=== PATIENT | female | born 1940 | race Caucasian/White ===

== ENCOUNTER → 2016-09-08 15:50 | Outpatient (CLI) | payer MEDICARE, OTHER ==
[2014-10-26 00:53] VITALS: BMI 27.0
[~2016-09-08 15:50] MED LIST: AVAPRO150 MG PO; BUMEX 1 MG TAB1 MG PO; CALTRATE 600 M600 M1 PO; CARTIA XT240 MG PO; DIOVAN80 MG PO; HYDROCODONE-APA1 TAB PO; KLONOPIN1 MG PO; LEXAPRO20 MG PO; LIPITOR20 MG PO; MIRAPEX1 MG PO; PLAVIX75 MG PO; VITAMIN D31000 UNIT PO
== END | disposition home or self-care (01) ==
LOC: D.MRI 09-04 13:00
DX: M48.56XA Collapsed vertebra, not elsewhere classified, lumbar region, initial encounter for fracture (principal)

== ENCOUNTER 2016-09-18 07:56 | Outpatient (CLI) | payer MEDICARE, OTHER ==
[~2016-09-18] VITALS: Ht 154.9 cm; Wt 66.4 kg
--- NOTE | 2016-09-18 08:30 | NUR ---
IN AND OUT CATHETERIZATION COMPLETED, TOLERATED WELL. SENT URINE TO LAB FOR U/A AND CULTURE. HISTORY AND ASSESSMENT OBTAINED. FRIEND ACCOMPANIED PT.
[2016-09-18 08:47] VITALS: BP 126/71; Ht 154.9 cm; Wt 66.4 kg
[2016-09-18 10:26] LABS: APPEARANCE SLT CLOUDY (CLEAR); COLOR YELLOW (YELLOW)
[2016-09-18 10:27] LABS: BILIRUBIN NEGATIVE (NEGATIVE); GLUCOSE NEGATIVE (NEGATIVE); KETONE NEGATIVE (NEGATIVE); LEUKOCYTE ESTERASE 1+ (NEGATIVE); NITRITE NEGATIVE (NEGATIVE); PROTEIN NEGATIVE (NEGATIVE); UROBILINOGEN NORMAL (NORMAL)
[2016-09-18 10:29] LABS: WHITE CELLS - URINE 25-50 /hpf (0-5)
[2016-09-18 10:30] LABS: RED CELLS - URINE 0-5 /hpf (0-5)
[2016-09-18 10:31] LABS: BACTERIA MANY /hpf (NONE SEEN); EPITHELIAL CELLS 0-5 /hpf (0-5)
== END 2016-09-18 08:59 | disposition home or self-care (01) ==
LOC: D.OPS 07:56
PROVIDERS: Radiology Diagnostic Radiology
DX: M48.55XA Collapsed vertebra, not elsewhere classified, thoracolumbar region, initial encounter for fracture (principal)

== ENCOUNTER 2018-01-17 12:00 | Inpatient (IN) | payer MEDICARE, OTHER ==
[~2018-01-17] VITALS: Ht 154.9 cm; Wt 57.2 kg
--- NOTE | ~2018-01-17 | OP ---
PATIENT NAME: LANNY JULIEN MEDICAL RECORD: [id number] :36 LOCATION:D.[facility] [address] ADMISSION DATE:01/17/18 SURGEON: DANIEL CLIFTON MD DATE OF OPERATION: 01/18/2018 SURGEON: Daniel Clifton MD ANESTHESIA: TIVA by Yesica Pitts CRNA. DIAGNOSIS: Right hydroureteronephrosis. PROCEDURES: Cystoscopy, right retrograde pyelogram, right ureteral stent insertion 6-Salvadorean x 24 cm without string attached. FINDINGS: Single ureteral orifices bilaterally. No bladder tumors. On retrograde pyelogram, there is a medial deviation of the ureter just below the L5 vertebral body level and over the sacral body. There is a very tight stricture here. CLINICAL HISTORY: This is a 77-year-old female who came in with abdominal pain and nausea and vomiting. CT scan showed a possible ileus. She had a small bowel follow-through today and the dye does go through all the way down to the rectum, therefore she does not have a bowel obstruction. She has an NG tube in the meantime in case she had a bowel obstruction. The CT also shows acute right-sided hydronephrosis with no obvious cause. There is no stone visible in the kidney or the ureter. Her admitting urine culture grew E. coli, which is sensitive to ceftriaxone. She is currently on ceftriaxone IV. She comes now to have a right ureteral stent inserted to decompress the right kidney. We used an open-ended ureteral catheter and inserted contrast through the right ureteral orifice. The tight stricture actually prevented the contrast from migrating proximally. We had to push the catheter past the stricture zone in order to image the rest of the ureter proximal to the stricture zone. Here we found a quite significant hydroureteronephrosis. There are no filling defects that are seen. Through the lumen of the ureteral catheter, we inserted the Sensor wire up into the renal pelvis. The ureteral catheter was then removed. Over the guidewire, we inserted a 6-Salvadorean x 24 cm ureteral stent. Once the stent was in correct position, the wire was completely withdrawn. The distal end of the stent was pushed into the bladder using a pusher. The bladder was emptied through the cystoscope sheath and then the scope was removed. TRANSINT:[id number] Voice Confirmation ID: [id number] DOCUMENT ID: [id number] DANIEL CLIFTON MD at 0830 CC: [id number] DICTATION DATE: 01/18/18 1532 MANAGER CASINO: 01/18/[address] [facility] [address] [place] [address]
--- NOTE | ~2018-01-17 | MORECARE ---
CASE MANAGEMENT DISCHARGE SUMMARY PATIENT: LANNY JULIEN UNIT: [id number] ADM DATE: 01/17/18 AGE: 77 : 38 SEX: F ROOM/BED: D.2234 AUTHOR: GERARDO GALAN PHYSICIAN: REFERRING PHYSICIAN: SHERLYN DE LA CRUZ MD DATE OF SERVICE: 01/21/18 Discharge Plan Patient Name: LANNY JULIEN Facility: [facility]:[place] : 1940 Planned Disposition: Home Anticipated Discharge Date: Discharge Date: 01/20/2018 Expected LOS: 0 Initial Reviewer: [email or web address] Initial Review Date: 01/20/2018 Generated: 01/21/18 10:29 am Comments DCP- Discharge Planning Updated by [id number]: Neelima Tervino on 01/20/18 11:[address] Patient Name: LANNY JULIEN Admission Status: ER Accout number: [id number] Admission Date: 01-17-2018 : 1940 Admission Diagnosis:HYDRONEPHROSIS W URETERAL STRICTURE, NEC Attending: SHERLYN DE LA CRUZ Current LOS: 3 Anticipated DC Date: Planned Disposition: Home Primary Insurance: MEDICARE A & B Discharge Planning Comments: CM met with patient to discuss discharge planning, she is alone in the room. She states she is independent with all ADL's and IADL's. States she lives with her in a single story home. States her has dementia. States her son and daughter in law live on the same property next door. Informed of rehab, SNF, home health services and DME availability, she declines them for herself. [facility] and they state that he does not qualify for any aide. She states "I really need help with him, such as home health." I gave her a list of home health agencies and also informed her to call his PCP (Dr. Royal) and inform him. I also gave her a card for [facility] and explained they are a free service. I provided her with Mr. Adams's card from [facility] that is a Varnish Blender that may also be able to help her. She is very thankful and states she will call him. CM will continue to follow and assist with discharge planning/needs. Senior Instrumentation Engineer: Neelima Trevino DCPIA - Discharge Planning Initial Assessment Updated by [email or web address]: Neelima Trevino on 01/20/18 12:11 pm * Is the patient Alert and Oriented? Yes * How many steps to enter\\exit or inside your home? 0/0 * PCP Dr. Royal * Pharmacy [facility] [address] * Preadmission Environment Home with Family * ADLs Independent * Equipment None * List name and contact numbers for known caregivers / representatives who currently or will assist patient after discharge: Vernon english - [phone] * Verbal permission to speak to the caregivers and representatives has been obtained from the patient. Yes * Community resources currently utilized None * Additional services required to return to the preadmission environment? No * Can the patient safely return to the preadmission environment? Yes * Has this patient been hospitalized within the prior 30 days at any hospital? No Coverage Notice Reviewer: [id number] - Neelima Trevino Notice Issued Date-Time: 01/20/2018 12:06 Notice Type: IM Discharge Notice Notice Delivered To: Patient Relationship to Patient: Self Section Forest Fire Warden Name: Delivery Method: HAND - Hand Delivered Reunka Days: Prior Verbal Notification: Recipient Understood Notice: Yes Recipient Signature: Yes Med Rec Note Co-signed by Attending: Coverage Notice Comment: IMM explained, signed, copy given, original placed in MR Last DP export: 01/20/18 11:18 Patient Name: LANNY JULIEN Page [id number] at 0929 All edits/amendments must be made on the electronic document DICTATION DATE: 01/21/18927 EDGE BANDER HAND: SELVIN 01/21/18927 RPT#: [id number] DC DATE:01/20/18 STATUS: DIS IN [facility] [address] [place] [address] END OF REPORT
--- NOTE | ~2018-01-17 | MORECARE ---
CASE MANAGEMENT DISCHARGE SUMMARY PATIENT: LANNY JULIEN S UNIT: [id number] ADM DATE: 01/17/18 AGE: 77 : 38 SEX: F ROOM/BED: D.2234 AUTHOR: GERARDO GALAN PHYSICIAN: REFERRING PHYSICIAN: SHERLYN DE LA CRUZ MD DATE OF SERVICE: 01/20/18 Discharge Plan Patient Name: LANNY JULIEN Facility: [facility]:[place] : 1940 Planned Disposition: Home Anticipated Discharge Date: Discharge Date: Expected LOS: Initial Reviewer: [email or web address] Initial Review Date: 01/20/2018 Generated: 01/20/18 1:11 pm Coverage Notice Reviewer: [id number] - Neelima Trevino Notice Issued Date-Time: 01/20/2018 12:06 Notice Type: IM Discharge Notice Notice Delivered To: Patient Relationship to Patient: Self Physical Therapist Technician Name: Delivery Method: HAND - Hand Delivered Renuka Days: Prior Verbal Notification: Recipient Understood Notice: Yes Recipient Signature: Yes Med Rec Note Co-signed by Attending: Coverage Notice Comment: IMM explained, signed, copy given, original placed in MR Patient Name: LANNY JULIEN Page 80985 at 1211 All edits/amendments must be made on the electronic document DICTATION DATE: 01/20/18 1211 AOC AADC OPERATIONS STAFF OFFICER: SELVIN 01/20/18 1211 RPT#: [id number] DC DATE: STATUS: ADM IN [facility] [address] [place] [address] END OF REPORT
--- NOTE | ~2018-01-17 | MORECARE ---
CASE MANAGEMENT DISCHARGE SUMMARY PATIENT: LANNY JULIEN UNIT: [id number] ADM DATE: 01/17/18 AGE: 77 : 38 SEX: F ROOM/BED: D.2234 AUTHOR: GERARDO GALAN PHYSICIAN: REFERRING PHYSICIAN: SHERLYN DE LA CRUZ MD DATE OF SERVICE: 01/20/18 Discharge Plan Patient Name: LANNY JULIEN Facility: [facility]:[place] : 1940 Planned Disposition: Home Anticipated Discharge Date: Discharge Date: Expected LOS: Initial Reviewer: [id number] Initial Review Date: 01/20/2018 Generated: 01/20/18 1:18 pm Comments DCP- Discharge Planning Updated by [email or web address]: Neelima Trevino on 01/20/18 11:[address] Patient Name: LANNY JULIEN Admission Status: ER Accout number: [id number] Admission Date: 01-17-2018 : 1940 Admission Diagnosis:HYDRONEPHROSIS W URETERAL STRICTURE, NEC Attending: SHERLYN DE LA CRUZ Current LOS: 3 Anticipated DC Date: Planned Disposition: Home Primary Insurance: MEDICARE A & B Discharge Planning Comments: CM met with patient to discuss discharge planning, she is alone in the room. She states she is independent with all ADL's and IADL's. States she lives with her in a single story home. States her has dementia. States her son and daughter in law live on the same property next door. Informed of rehab, SNF, home health services and DME availability, she declines them for herself. She [facility] and they state that he does not qualify for any aide. She states "I really need help with him, such as home health." I gave her a list of home health agencies and also informed her to call his PCP (Dr. Royal) and inform him. I also gave her a card for [facility] and explained they are a free service. I provided her with Mr. Adams's card from [facility] that is a Regulatory Specialist that may also be able to help her. She is very thankful and states she will call him. CM will continue to follow and assist with discharge planning/needs. Printing Manager: Neelima Trevino DCPIA - Discharge Planning Initial Assessment Updated by [email or web address]: Neelima Trevino on 01/20/18 12:11 pm * Is the patient Alert and Oriented? Yes * How many steps to enter\\exit or inside your home? 0/0 * PCP Dr. Royal * Pharmacy [facility] [address] * Preadmission Environment Home with Family * ADLs Independent * Equipment None * List name and contact numbers for known caregivers / representatives who currently or will assist patient after discharge: Vernon english - [phone] * Verbal permission to speak to the caregivers and representatives has been obtained from the patient. Yes * Community resources currently utilized None * Additional services required to return to the preadmission environment? No * Can the patient safely return to the preadmission environment? Yes * Has this patient been hospitalized within the prior 30 days at any hospital? No Coverage Notice Reviewer: [id number] - Neelima Trevino Notice Issued Date-Time: 01/20/2018 12:06 Notice Type: IM Discharge Notice Notice Delivered To: Patient Relationship to Patient: Self Gerontology Aide Name: Delivery Method: HAND - Hand Delivered Renuka Days: Prior Verbal Notification: Recipient Understood Notice: Yes Recipient Signature: Yes Med Rec Note Co-signed by Attending: Coverage Notice Comment: IMM explained, signed, copy given, original placed in MR Last DP export: 01/20/18 11:11 Patient Name: LANNY JULIEN Page [id number] at 1218 All edits/amendments must be made on the electronic document DICTATION DATE: 01/20/181216 CAD TECHNICIAN: SELVIN 01/20/181216 RPT#: [id number] DC DATE: STATUS: ADM IN [facility] [address] [place] [address] END OF REPORT
[2018-01-17 12:32] LABS: BASOPHILS 0.2 % (0-2); EOSINOPHILS 0 % (0-7); HEMATOCRIT 41.6 % (36.0-48.0); HEMOGLOBIN 14.1 g/dL (12-16); IMMATURE GRANULOCYTES 0.1 % (0-5); LYMPHOCYTES 5.9 % (15-50); MCH 29.7 pg (26.0-34.0); MCHC 33.9 g/dL (31.0-37.0); MCV 87.8 fL (80.0-100.0); MEAN PLATELET VOLUME 9.4 fL (7.4-10.4); MONOCYTES 5.2 % (2-11); NEUTROPHILS 88.6 % (40-80); RBC 4.74 10x6/uL (4.00-5.40); RDW 12.4 % (11.5-14.5); WBC 10.8 10x3/uL (4.8-10.8)
[2018-01-17 12:47] LABS: ALBUMIN 3.2 g/dL (3.4-5.0); ANION GAP 18.3 mmol/L (8-16); BILIRUBIN - TOTAL 0.97 mg/dL (0.2-1.3); CALCIUM 8.9 mg/dL (8.5-10.1); CARBON DIOXIDE 25.6 mmol/L (21.0-32.0); CREATININE - SERUM 1.6 mg/dL (0.6-1.3); POTASSIUM - SERUM 3.9 mmol/L (3.5-5.1); PROTEIN - SERUM 7.2 g/dL (6.4-8.2)
[2018-01-17 12:48] LABS: PLATELET COUNT 227 10x3/uL (130-400)
[2018-01-17 14:05] LABS: APPEARANCE SL CLDY (CLEAR); BILIRUBIN NEGATIVE (NEGATIVE); COLOR DK YELLOW (YELLOW); GLUCOSE NEGATIVE (NEGATIVE); KETONE LARGE mg/dL (NEGATIVE); NITRITE NEGATIVE (NEGATIVE); PROTEIN TRACE mg/dL (NEGATIVE); SPECIFIC GRAVITY 1.025 (1.005-1.020)
[2018-01-17 14:06] LABS: BACTERIA MANY /hpf (NONE SEEN); EPITHELIAL CELLS 0-5 /hpf (0-5); MUCUS >1+ /lpf (NONE SEEN); WHITE CELLS - URINE 25-50 /hpf (0-5)
[2018-01-17 18:22] VITALS: BP 118/68; BMI 23.8
[2018-01-17 20:00] VITALS: BP 116/60
[2018-01-18 04:02] VITALS: BP 122/62
[2018-01-18 05:18] LABS: BASOPHILS 0.5 % (0-2); EOSINOPHILS 1.4 % (0-7); HEMATOCRIT 33.5 % (36.0-48.0); IMMATURE GRANULOCYTES 0.2 % (0-5); LYMPHOCYTES 15.3 % (15-50); MCH 29.5 pg (26.0-34.0); MCHC 33.1 g/dL (31.0-37.0); MCV 89.1 fL (80.0-100.0); MEAN PLATELET VOLUME 9.7 fL (7.4-10.4); MONOCYTES 9.7 % (2-11); NEUTROPHILS 72.9 % (40-80); PLATELET COUNT 203 10x3/uL (130-400); RDW 12.7 % (11.5-14.5)
[2018-01-18 05:21] LABS: HEMOGLOBIN 11.1 g/dL (12-16); RBC 3.76 10x6/uL (4.00-5.40); WBC 6.6 10x3/uL (4.8-10.8)
[2018-01-18 05:40] LABS: ANION GAP 17.6 mmol/L (8-16); CARBON DIOXIDE 21.8 mmol/L (21.0-32.0); CREATININE - SERUM 1.4 mg/dL (0.6-1.3); POTASSIUM - SERUM 3.4 mmol/L (3.5-5.1)
[2018-01-18 08:18] VITALS: BP 130/64
[2018-01-18 12:16] VITALS: BP 122/62
[2018-01-18 15:05] VITALS: Ht 154.9 cm; Wt 57.2 kg
[2018-01-18 16:09] VITALS: BP 132/59
[2018-01-18 20:00] VITALS: BP 161/68
[2018-01-19 05:51] LABS: BASOPHILS 0.2 % (0-2); EOSINOPHILS 1.1 % (0-7); HEMATOCRIT 32.6 % (36.0-48.0); HEMOGLOBIN 10.8 g/dL (12-16); IMMATURE GRANULOCYTES 0.2 % (0-5); LYMPHOCYTES 5.9 % (15-50); MCH 29.5 pg (26.0-34.0); MCHC 33.1 g/dL (31.0-37.0); MCV 89.1 fL (80.0-100.0); MONOCYTES 9.4 % (2-11); NEUTROPHILS 83.2 % (40-80); PLATELET COUNT 171 10x3/uL (130-400); RBC 3.66 10x6/uL (4.00-5.40); RDW 12.5 % (11.5-14.5)
[2018-01-19 05:53] LABS: ANION GAP 18.3 mmol/L (8-16); CALCIUM 7.8 mg/dL (8.5-10.1); CARBON DIOXIDE 21.1 mmol/L (21.0-32.0); CREATININE - SERUM 1.2 mg/dL (0.6-1.3); POTASSIUM - SERUM 3.4 mmol/L (3.5-5.1)
[2018-01-19 06:22] LABS: WBC 8.4 10x3/uL (4.8-10.8)
[2018-01-19 09:07] VITALS: BP 168/77
[2018-01-19 12:29] VITALS: BP 164/77
[2018-01-19 17:14] VITALS: BP 182/88
[2018-01-19 20:00] VITALS: BP 154/92
[2018-01-20 04:00] VITALS: BP 126/77
[2018-01-20 05:45] LABS: BASOPHILS 0.2 % (0-2); EOSINOPHILS 2.9 % (0-7); HEMATOCRIT 36.9 % (36.0-48.0); HEMOGLOBIN 12.5 g/dL (12-16); IMMATURE GRANULOCYTES 0.1 % (0-5); LYMPHOCYTES 9.7 % (15-50); MCH 29.6 pg (26.0-34.0); MCHC 33.9 g/dL (31.0-37.0); MCV 87.4 fL (80.0-100.0); MEAN PLATELET VOLUME 10.3 fL (7.4-10.4); MONOCYTES 8.4 % (2-11); NEUTROPHILS 78.7 % (40-80); RBC 4.22 10x6/uL (4.00-5.40); RDW 12.6 % (11.5-14.5); WBC 9.6 10x3/uL (4.8-10.8)
[2018-01-20 05:54] LABS: PLATELET COUNT 207 10x3/uL (130-400)
[2018-01-20 06:03] LABS: ANION GAP 12.6 mmol/L (8-16); CALCIUM 8.3 mg/dL (8.5-10.1); CARBON DIOXIDE 25.3 mmol/L (21.0-32.0)
[2018-01-20 06:23] LABS: POTASSIUM - SERUM 2.9 mmol/L (3.5-5.1)
[2018-01-20 08:34] VITALS: BP 147/78
== END 2018-01-20 13:43 | disposition home or self-care (01) | DRG 659 ==
LOC: D.ER 12:00 → D.MS 17:14
PROVIDERS: Family Medicine; Urology
PROC: BT1D1ZZ Fluoroscopy of Right Kidney, Ureter and Bladder using Low Osmolar Contrast (ICD-10-PCS; 2018-01-18)
PROC: 0T768DZ Dilation of Right Ureter with Intraluminal Device, Via Natural or Artificial Opening Endoscopic (ICD-10-PCS; principal; 2018-01-18 12:00)
DX: N13.1 Hydronephrosis with ureteral stricture, not elsewhere classified (principal); K25.4 Chronic or unspecified gastric ulcer with hemorrhage; K56.600 Partial intestinal obstruction, unspecified as to cause; N39.0 Urinary tract infection, site not specified; N17.9 Acute kidney failure, unspecified; E86.0 Dehydration; B96.20 Unspecified Escherichia coli [E. coli] as the cause of diseases classified elsewhere; K52.9 Noninfective gastroenteritis and colitis, unspecified

== ENCOUNTER 2018-01-26 00:10 | Inpatient (IN) | payer MEDICARE, OTHER ==
[2018-01-26] VITALS (7 sets, daily range): BP systolic 114–139; BP diastolic 49–82; BMI 24.1; BMI 24.2
[~2018-01-26] VITALS: Ht 154.9 cm; Wt 55.0 kg
--- NOTE | ~2018-01-26 | MORECARE ---
CASE MANAGEMENT DISCHARGE SUMMARY PATIENT: LANNY JULIEN UNIT: [id number] ADM DATE: 01/26/18 AGE: 77 : 38 SEX: F ROOM/BED: D.4021 AUTHOR: GERARDO GALAN PHYSICIAN: REFERRING PHYSICIAN: EDWARD CAMPBELL MD DATE OF SERVICE: 01/28/18 Discharge Plan Patient Name: LANNY JULIEN Facility: [facility]:[place] : 1940 Planned Disposition: Home Anticipated Discharge Date: 01/28/18 Discharge Date: 01/28/2018 Expected LOS: 2 Initial Reviewer: [id number] Initial Review Date: 01/26/2018 Generated: 01/28/18 4:39 pm Comments DCP- Discharge Planning Updated by [id number]: Hamzah Harrell on 01/28/18 2:[address] Patient Name: LANNY JULIEN Encounter No: [id number] : 1940 Primary Insurance: MEDICARE A & B Anticipated DC Date: 01-28-2018 Planned Disposition: Home DCP follow-up note: CM MET WITH PT IN ROOM TO DISCUSS DISCHARGE NEEDS AND PLANNING. CM DISCUSSED AVAILABILITY OF HOME HEALTH, REHAB SERVICES AND MEDICAL EQUIPMENT. PT DENIES DISCHARGE NEEDS. DAUGHTER HERE TO TRANSPORT HOME AT DISCHARGE. IMPORTANT MESSAGE FROM MEDICARE PROVIDED AND EXPLAINED. FABI DUBOIS DCP- Discharge Planning Updated by [id number]: Hamzah Harrell on 01/27/18 4:[address] Patient Name: LANNY JULIEN Encounter No: [id number] : 1940 Primary Insurance: MEDICARE A & B Anticipated DC Date: 01-28-2018 Planned Disposition: Home DISCHARGE PLANNING COMMENTS: CM RECEIVED ORDER STATING PT IS CAREGIVER FOR DEMENTED SPOUSE. CM MET WITH PT IN ROOM TO DISCUSS DISCHARGE PLANNING AND NEEDS. PT REPORTS LIVING AT HOME INDEPENDENTLY WITH HER FOR WHOM SHE IS CAREGIVER, HE HAS DEMENTIA. PT HAS NO MEDICAL EQUIPMENT AND NO OUTSIDE SERVICES ASSISTING IN THE HOME. CM DISCUSSED AVAILABILITY OF HOME HEALTH, REHAB SERVICES AND MEDICAL EQUIPMENT. PT DENIES DISCHARGE NEEDS, REPORTS HER SON OR DAUGHTER IN LAW WILL PICK HER UP FOR DISCHARGE HOME. PT REPORTS PT HAD HER SPOUSE IN THE [facility] BUT IT WAS TOO EXPENSIVE, SHE HAD TO SELL THEIR HOME AND MOVED CLOSE TO HER SON SO THAT HER SON AND DAUGHTER IN LAW ASSIST WITH HIS CARE IN THE DAY, PT CARES FOR HER SPOUSE AT NIGHT AND DOESN'T KNOW HOW MUCH LONGER SHE CAN DO IT. PT'S SPOUSE IS NOT MEDICAID ELIGIBLE AND NOT ELIGIBLE FOR VA SERVICES. CM PROVIDED PT WITH INFORMATION TO "[facility]" TO DISCUSS PLACEMENT OPTIONS FOR PT. CM PROVIDED PT WITH INFORMATION FOR FREE CONSULTATION WITH [employer] IN [place]. CM PROVIDED PT WITH PERSONAL CARE AGENCY INFORMATION, POINTED OUT THAT [facility] WOULD CONSULT FOR FREE IN THE HOME. PT THANKED CM, DENIES DISCHARGE NEEDS. PT PLANS TO DISCHARGE HOME AND CONTINUE CARE OF HER SPOUSE WITH ASSISTANCE OF FAMILY. FAMILY TO TRANSPORT HOME AT DISCHARGE. CM TO FOLLOW AND ASSIST IF NEEDED. HAMZAH HARRELL, \\CASE MANAGEMENT DCPIA - Discharge Planning Initial Assessment Updated by [id number]: Hamzah Harrell on 01/27/18 4:45 pm * Is the patient Alert and Oriented? Yes * How many steps to enter\\exit or inside your home? * PCP DR. CAMPBELL * Pharmacy [facility] * Preadmission Environment Home with Family * ADLs Independent * Equipment None * Other Equipment NO MEDICAL EQUIPMENT PROVIDER PREFERENCE * List name and contact numbers for known caregivers / representatives who currently or will assist patient after discharge: HORTENCIA VENTURA, SON, (LIVES NEXT DOOR) NICOL VETNURA, SON, * Verbal permission to speak to the caregivers and representatives has been obtained from the patient. N/A * Community resources currently utilized None * Please name any agencies selected above. NONE * Additional services required to return to the preadmission environment? No * Can the patient safely return to the preadmission environment? Yes * Has this patient been hospitalized within the prior 30 days at any hospital? Yes Coverage Notice Reviewer: [id number] - Hamzah Harrell Notice Issued Date-Time: 01/28/2018 15:00 Notice Type: IM Discharge Notice Notice Delivered To: Patient Relationship to Patient: Bridal Service Sales And Management Name: Delivery Method: HAND - Hand Delivered Renuka Days: Prior Verbal Notification: Recipient Understood Notice: Yes Recipient Signature: Yes Med Rec Note Co-signed by Attending: Coverage Notice Comment: Last DP export: 01/27/18 4:25 p Patient Name: LANNY JULIEN Page 85802 at 1540 All edits/amendments must be made on the electronic document DICTATION DATE: 01/28/181538 CAREER REPRESENTATIVE: SELVIN 01/28/181538 RPT#: [id number] DC DATE:01/28/18 STATUS: DIS IN [facility] [address] [place] [address] END OF REPORT
--- NOTE | ~2018-01-26 | MORECARE ---
CASE MANAGEMENT DISCHARGE SUMMARY PATIENT: LANNY JULIEN UNIT: [id number] ADM DATE: 01/26/18 AGE: 77 : 38 SEX: F ROOM/BED: D.7328 AUTHOR: GERARDO GALAN PHYSICIAN: REFERRING PHYSICIAN: EDWARD CAMPBELL MD DATE OF SERVICE: 01/27/18 Discharge Plan Patient Name: LANNY JULIEN Facility: [facility]:[place] : 1940 Planned Disposition: Home Anticipated Discharge Date: 01/28/18 Discharge Date: Expected LOS: 2 Initial Reviewer: [email or web address] Initial Review Date: 01/26/2018 Generated: 01/27/18 6:25 pm Comments DCP- Discharge Planning Updated by [id number]: Hamzah Harrell on 01/27/18 4:[address] Patient Name: LANNY JULIEN Encounter No: [id number] : 1940 Primary Insurance: MEDICARE A & B Anticipated DC Date: 01-28-2018 Planned Disposition: Home DISCHARGE PLANNING COMMENTS: CM RECEIVED ORDER STATING PT IS CAREGIVER FOR DEMENTED SPOUSE. CM MET WITH PT IN ROOM TO DISCUSS DISCHARGE PLANNING AND NEEDS. PT REPORTS LIVING AT HOME INDEPENDENTLY WITH HER FOR WHOM SHE IS CAREGIVER, HE HAS DEMENTIA. PT HAS NO MEDICAL EQUIPMENT AND NO OUTSIDE SERVICES ASSISTING IN THE HOME. CM DISCUSSED AVAILABILITY OF HOME HEALTH, REHAB SERVICES AND MEDICAL EQUIPMENT. PT DENIES DISCHARGE NEEDS, REPORTS HER SON OR DAUGHTER IN LAW WILL PICK HER UP FOR DISCHARGE HOME. PT REPORTS PT HAD HER SPOUSE IN THE [employer] BUT IT WAS TOO EXPENSIVE, SHE HAD TO SELL THEIR HOME AND MOVED CLOSE TO HER SON SO THAT HER SON AND DAUGHTER IN LAW ASSIST WITH HIS CARE IN THE DAY, PT CARES FOR HER SPOUSE AT NIGHT AND DOESN'T KNOW HOW MUCH LONGER SHE CAN DO IT. PT'S SPOUSE IS NOT MEDICAID ELIGIBLE AND NOT ELIGIBLE FOR VA SERVICES. CM PROVIDED PT WITH INFORMATION TO "[facility]" TO DISCUSS PLACEMENT OPTIONS FOR PT. CM PROVIDED PT WITH INFORMATION FOR FREE CONSULTATION WITH [facility] IN [place]. CM PROVIDED PT WITH PERSONAL CARE AGENCY INFORMATION, POINTED OUT THAT [facility] EDG[facility] WOULD CONSULT FOR FREE IN THE HOME. PT THANKED CM, DENIES DISCHARGE NEEDS. PT PLANS TO DISCHARGE HOME AND CONTINUE CARE OF HER SPOUSE WITH ASSISTANCE OF FAMILY. FAMILY TO TRANSPORT HOME AT DISCHARGE. CM TO FOLLOW AND ASSIST IF NEEDED. HAMZAH HRARELL, \\CASE MANAGEMENT DCPIA - Discharge Planning Initial Assessment Updated by [email or web address]: Hamzah Harrell on 01/27/18 4:45 pm * Is the patient Alert and Oriented? Yes * How many steps to enter\\exit or inside your home? * PCP DR. CAMPBELL * Pharmacy [facility] [place] * Preadmission Environment Home with Family * ADLs Independent * Equipment None * Other Equipment NO MEDICAL EQUIPMENT PROVIDER PREFERENCE * List name and contact numbers for known caregivers / representatives who currently or will assist patient after discharge: HORTENCIA VENTURA, SON, (LIVES NEXT DOOR) NICOL VENTURA, SON, * Verbal permission to speak to the caregivers and representatives has been obtained from the patient. N/A * Community resources currently utilized None * Please name any agencies selected above. NONE * Additional services required to return to the preadmission environment? No * Can the patient safely return to the preadmission environment? Yes * Has this patient been hospitalized within the prior 30 days at any hospital? Yes Last DP export: 01/27/18 3:47 p Patient Name: LANNY JULIEN Page 30383 at 1725 All edits/amendments must be made on the electronic document DICTATION DATE: 01/27/181723 ROAD CONTRACTOR: SELVIN 01/27/181723 RPT#: [id number] DC DATE: STATUS: ADM IN [facility] [address] [place] [address] END OF REPORT
--- NOTE | ~2018-01-26 | HP ---
PATIENT: LANNY JULIEN MEDICAL RECORD: [id number] ACCOUNT: [id number] LOCATION:[address] : [birth year] ADMISSION DATE: 01/26/18 PCP: No PCP HISTORY AND PHYSICAL EXAMINATION DATE OF ADMISSION: 01/26/2018 CHIEF COMPLAINT: Abdominal pain, nausea, vomiting for 3 days. HISTORY OF PRESENT ILLNESS: This is a 77-year-old female who presented to the ER with 3-day history of worsening abdominal pain, nausea, and vomiting. She was admitted here on 01/17/2018 with similar complaints. A CT of the abdomen and pelvis suggested ileus, partial small-bowel obstruction. She was treated and went home only to come back now for these complaints. CT of the abdomen and pelvis suggest ileus versus enterocolitis. She is admitted for IV antibiotics and further treatment. PAST MEDICAL AND SURGICAL HISTORY: Hypertension, arthritis, depression, coronary artery disease, restless leg syndrome, compression fractures, TIA in January 2013. PAST SURGICAL HISTORY: Hysterectomy, coronary artery disease with stent, cholecystectomy, vertebroplasty for compression fractures. ALLERGIES: WILMAR INHIBITORS. HOME MEDICATIONS: Carafate a.c. and at bedtime, pramipexole 1 mg at bedtime, hydrocodone p.r.n. pain, Klonopin 2 mg at bedtime, Lexapro 20 mg every day, milk of magnesia p.r.n., vitamin D3 1000 units daily, calcium Caltrate D daily, atorvastatin 20 mg daily, pantoprazole 40 mg daily, irbesartan 150 mg daily. SOCIAL HISTORY: , retired. FAMILY HISTORY: Hypertension. 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 No tobacco, alcohol, or drugs. REVIEW OF SYSTEMS: GENERAL: No major weight changes. HEENT: No sinus or allergy problems. RESPIRATORY: No history of emphysema or asthma. CARDIAC: Followed by Dr. Dumont for heart disease. This has been stable for years. GASTROINTESTINAL: Has reflux. GENITOURINARY: Occasional UTI. MUSCULOSKELETAL: History of compression fractures and has had recurrent pain there. She has a history of arthritis. NEUROLOGIC: No seizures or migraine. She does have restless leg syndrome. PSYCHIATRIC: She has had some depression. PHYSICAL EXAMINATION: VITAL SIGNS: Afebrile, heart rate 87, respirations 18, blood pressure 133/82, O2 sat 87%. GENERAL: She is complaining of diffuse abdominal pain. Awake and alert. HISTORY AND PHYSICAL [id number] LANNY JULIEN HEENT: Grossly within normal limits. NECK: Supple. HEART: Regular rate and rhythm without murmur. LUNGS: Clear. ABDOMEN: Soft, but there is generalized tenderness. No guarding, no rebound, no mass. EXTREMITIES: No edema. LABORATORY DATA: Basic metabolic panel is all normal as are liver functions. Troponin is normal. Amylase and lipase were okay. CBC with a white count of 10,600, hemoglobin 12.7, hematocrit 37.3. Urinalysis dark yellow, cloudy urine with 2+ protein, 2+ blood, 1+ leukocyte esterase and moderate bacteria. IMAGING DATA: CT of abdomen and pelvis compared to the previous one done just within the last couple of weeks, shows ileus versus enterocolitis. ASSESSMENT: Enterocolitis. PLAN: IV antibiotics, gut rest, pain control, IV fluids. Other tests and procedures as warranted. TRANSINT:[id number] Voice Confirmation ID: [id number] DOCUMENT ID: [id number] EDWARD CAMPBELL MD at 1849 CC: [id number] DICTATION DATE: 02/26/18 1251 ASSISTANT SPEECH LANGUAGE PATHOLOGIST: 02/26/18 1459 DIS IN 01/28/18 [id number] [place] [address]
--- NOTE | ~2018-01-26 | MORECARE ---
CASE MANAGEMENT DISCHARGE SUMMARY PATIENT: LANNY JULIEN S UNIT: [id number] ADM DATE: 01/26/18 AGE: 77 : 38 SEX: F ROOM/BED: D.2105 AUTHOR: GERARDO GALAN PHYSICIAN: REFERRING PHYSICIAN: EDWARD CAMPBELL MD DATE OF SERVICE: 01/27/18 Discharge Plan Patient Name: LANNY JULIEN Facility: [facility]:[place] : 1940 Planned Disposition: Home Anticipated Discharge Date: 01/28/18 Discharge Date: Expected LOS: 2 Initial Reviewer: [email or web address] Initial Review Date: 01/26/2018 Generated: 01/27/18 5:47 pm DCPIA - Discharge Planning Initial Assessment Updated by [email or web address]: Hamzah Ashley on 01/27/18 4:45 pm * Is the patient Alert and Oriented? Yes * How many steps to enter\exit or inside your home? * PCP DR. CAMPBELL * Pharmacy [facility] * Preadmission Environment Home with Family * ADLs Independent * Equipment None * Other Equipment NO MEDICAL EQUIPMENT PROVIDER PREFERENCE * List name and contact numbers for known caregivers / representatives who currently or will assist patient after discharge: HORTENCIA VENTURA, SON, (LIVES NEXT DOOR) NICOL VENTURA, SON, * Verbal permission to speak to the caregivers and representatives has been obtained from the patient. N/A * Community resources currently utilized None * Please name any agencies selected above. NONE * Additional services required to return to the preadmission environment? No * Can the patient safely return to the preadmission environment? Yes * Has this patient been hospitalized within the prior 30 days at any hospital? Yes Patient Name: LANNY JULIEN Page 95726 at 1647 All edits/amendments must be made on the electronic document DICTATION DATE: 01/27/181646 HEAVY DUTY TRUCK MECHANIC: SELVIN 01/27/181646 RPT#: [id number] DC DATE: STATUS: ADM IN [place] [address] [place] [address] END OF REPORT
[2018-01-26 01:06] LABS: BASOPHILS 0.3 % (0-2); EOSINOPHILS 0.8 % (0-7); HEMATOCRIT 37.3 % (36.0-48.0); HEMOGLOBIN 12.7 g/dL (12-16); IMMATURE GRANULOCYTES 0.4 % (0-5); LYMPHOCYTES 7.7 % (15-50); MEAN PLATELET VOLUME 9.2 fL (7.4-10.4); MONOCYTES 6.7 % (2-11); NEUTROPHILS 84.1 % (40-80); PLATELET COUNT 194 10x3/uL (130-400); RBC 4.24 10x6/uL (4.00-5.40); RDW 12.6 % (11.5-14.5); WBC 10.6 10x3/uL (4.8-10.8)
[2018-01-26 01:32] LABS: ALBUMIN 2.9 g/dL (3.4-5.0); ANION GAP 11.1 mmol/L (8-16); BILIRUBIN - TOTAL 0.58 mg/dL (0.2-1.3); CALCIUM 9.3 mg/dL (8.5-10.1); CARBON DIOXIDE 30.6 mmol/L (21.0-32.0); CREATININE - SERUM 1.1 mg/dL (0.6-1.3); POTASSIUM - SERUM 3.7 mmol/L (3.5-5.1); PROTEIN - SERUM 6.9 g/dL (6.4-8.2); TROPONIN-I 0.016 ng/mL (0.000-0.060)
[2018-01-26 01:39] LABS: APPEARANCE CLOUDY (CLEAR); COLOR DK YELLOW (YELLOW); SPECIFIC GRAVITY 1.025 (1.005-1.020)
[2018-01-26 01:40] LABS: BILIRUBIN NEGATIVE (NEGATIVE); GLUCOSE NEGATIVE (NEGATIVE); KETONE NEGATIVE (NEGATIVE); NITRITE NEGATIVE (NEGATIVE); PROTEIN 2+ mg/dL (NEGATIVE); UROBILINOGEN NORMAL (NORMAL)
[2018-01-26 01:41] LABS: BACTERIA MODERATE /hpf (NONE SEEN); CALCIUM OXALATE CRYSTALS 0-5 /hpf (NONE SEEN); EPITHELIAL CELLS 0-5 /hpf (0-5); MUCUS <1+ /lpf (NONE SEEN)
[2018-01-27 04:00] VITALS: BP 121/62
[2018-01-27 04:57] LABS: BASOPHILS 0.2 % (0-2); EOSINOPHILS 1.2 % (0-7); HEMATOCRIT 31.1 % (36.0-48.0); HEMOGLOBIN 10.5 g/dL (12-16); IMMATURE GRANULOCYTES 0.2 % (0-5); LYMPHOCYTES 5.4 % (15-50); MCH 30.1 pg (26.0-34.0); MCHC 33.8 g/dL (31.0-37.0); MCV 89.1 fL (80.0-100.0); MEAN PLATELET VOLUME 9.6 fL (7.4-10.4); MONOCYTES 10.5 % (2-11); NEUTROPHILS 82.5 % (40-80); PLATELET COUNT 163 10x3/uL (130-400); RBC 3.49 10x6/uL (4.00-5.40); RDW 12.9 % (11.5-14.5)
[2018-01-27 05:24] LABS: ALBUMIN 2.2 g/dL (3.4-5.0); ANION GAP 11.4 mmol/L (8-16); BILIRUBIN - TOTAL 0.3 mg/dL (0.2-1.3); CALCIUM 7.8 mg/dL (8.5-10.1); CARBON DIOXIDE 27.1 mmol/L (21.0-32.0); POTASSIUM - SERUM 3.5 mmol/L (3.5-5.1); PROTEIN - SERUM 5.4 g/dL (6.4-8.2)
[2018-01-27 10:40] VITALS: BP 136/74
[2018-01-27 12:00] VITALS: BP 139/69
[2018-01-27 12:35] VITALS: Ht 154.9 cm; Wt 55.0 kg
[2018-01-27 15:32] VITALS: BP 123/64
[2018-01-27 20:41] VITALS: BP 116/59
[2018-01-27 21:02] LABS: APPEARANCE CLEAR (CLEAR); BILIRUBIN NEGATIVE (NEGATIVE); COLOR YELLOW (YELLOW); GLUCOSE NEGATIVE (NEGATIVE); KETONE NEGATIVE (NEGATIVE); NITRITE NEGATIVE (NEGATIVE); PROTEIN TRACE mg/dL (NEGATIVE); UROBILINOGEN NORMAL (NORMAL)
[2018-01-27 21:04] LABS: BACTERIA MODERATE /hpf (NONE SEEN); EPITHELIAL CELLS 0-5 /hpf (0-5); WHITE CELLS - URINE 0-5 /hpf (0-5)
[2018-01-28 00:48] VITALS: BP 103/57
[2018-01-28 04:23] LABS: BASOPHILS 0.4 % (0-2); EOSINOPHILS 5.5 % (0-7); HEMATOCRIT 29.1 % (36.0-48.0); HEMOGLOBIN 9.4 g/dL (12-16); IMMATURE GRANULOCYTES 0.2 % (0-5); LYMPHOCYTES 18.2 % (15-50); MCH 29.1 pg (26.0-34.0); MCHC 32.3 g/dL (31.0-37.0); MCV 90.1 fL (80.0-100.0); MEAN PLATELET VOLUME 10.1 fL (7.4-10.4); MONOCYTES 12.2 % (2-11); NEUTROPHILS 63.5 % (40-80); PLATELET COUNT 155 10x3/uL (130-400); RBC 3.23 10x6/uL (4.00-5.40); RDW 12.6 % (11.5-14.5)
[2018-01-28 04:24] LABS: WBC 5.2 10x3/uL (4.8-10.8)
[2018-01-28 04:27] LABS: ANION GAP 10.9 mmol/L (8-16); CALCIUM 7.8 mg/dL (8.5-10.1); CARBON DIOXIDE 26.8 mmol/L (21.0-32.0); CREATININE - SERUM 0.9 mg/dL (0.6-1.3); POTASSIUM - SERUM 3.7 mmol/L (3.5-5.1)
[2018-01-28 05:36] VITALS: BP 116/61
[2018-01-28 07:35] VITALS: BP 144/83
[2018-01-28 11:40] VITALS: BP 130/75
[2018-01-28] MEDS ORDERED: LEVAQUIN250 MG PO (13:56)
[2018-01-28] MEDS ORDERED: FLAGYL500 MG PO (13:57)
== END 2018-01-28 15:33 | disposition home or self-care (01) | DRG 690 ==
LOC: D.ER 00:10 → D.M2 04:31 → D.EDHOLD 04:31 → D.M2 12:29
PROVIDERS: Family Medicine
DX: N39.0 Urinary tract infection, site not specified (principal); K52.9 Noninfective gastroenteritis and colitis, unspecified; F32.9 Major depressive disorder, single episode, unspecified

== ENCOUNTER 2018-02-08 16:37 | Inpatient (IN) | payer MEDICARE, OTHER ==
[~2018-02-08] VITALS: Ht 154.9 cm; Wt 53.6 kg
--- NOTE | ~2018-02-08 | HP ---
PATIENT: LANNY JULIEN MEDICAL RECORD: [id number] ACCOUNT: [id number] LOCATION:D.[facility]18 : 36 ADMISSION DATE: 02/08/18 PCP: EDWARD CAMPBELL MD HISTORY AND PHYSICAL EXAMINATION DATE OF ADMISSION: 02/08/2018. CHIEF COMPLAINT: Abdominal pain, bloating, nausea and vomiting. HISTORY OF PRESENT ILLNESS: This is a 77-year-old female who has been admitted twice in less than a month for similar symptoms. She was initially admitted on 01/17/2018. A CT of the abdomen and pelvis at that time suggested ileus/partial bowel obstruction and she was treated and discharged home. She came back approximately 10 days later with similar symptoms and CT at that time was read as more colitis and not an obstruction. She was treated, felt much better, and discharged home on Levaquin and Flagyl. She completed those medications a couple of days ago, her symptoms started in the last couple of days with abdominal bloating, nausea, vomiting and pain. She presented to the office today with these similar symptoms and she was directly admitted to the hospital for further evaluation and treatment. PAST MEDICAL AND SURGICAL HISTORY: She has a history of hypertension. She has arthritis, depression, coronary artery disease, restless leg syndrome, history of compression fractures, and TIA in January 2013. PAST SURGICAL HISTORY: Hysterectomy, coronary artery disease and stent, cholecystectomy, vertebroplasty for compression fractures. ALLERGIES: WILMAR INHIBITORS. HOME MEDICATIONS: Include Carafate a.c. and h.s., pramipexole 1 mg at bedtime, hydrocodone 10 p.r.n. pain, Klonopin 2 mg at bedtime, Lexapro 20 mg every day, milk of magnesia p.r.n. constipation, vitamin D3 1000 units daily, calcium 600 mg 2 a day, atorvastatin 20 mg once a day, pantoprazole 40 mg, and I believe she is also on irbesartan 150 mg once a day. SOCIAL HISTORY: She is , retired. FAMILY HISTORY: Hypertension. 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 No tobacco, alcohol or drugs. REVIEW OF SYSTEMS: GENERAL: No major weight changes. HEENT: No particular sinus or allergy problems. RESPIRATORY: No history of emphysema or asthma. CARDIAC: She is followed by Dr. Dumont for coronary artery disease. GASTROINTESTINAL: She has had reflux. GENITOURINARY: Occasional UTI. MUSCULOSKELETAL: She has had compression fractures and has had recurrent pain there. She has a history of arthritis. NEUROLOGIC: No seizures, no migraine headaches. PSYCHIATRIC: She has had some depression. HISTORY AND PHYSICAL [id number] LANNY JULIEN PHYSICAL EXAMINATION: VITAL SIGNS: Blood pressure 120/70, afebrile. GENERAL: She does not appear well. She has abdominal distention. HEENT: Grossly within normal limits. NECK: Supple. HEART: Regular rate and rhythm without murmur. LUNGS: Clear. ABDOMEN: Distended, but soft. Generalized tenderness. No guarding, no rebound, no mass. Bowel sounds are active. EXTREMITIES: No edema. LABORATORY DATA: Pending. ASSESSMENT: Abdominal pain, nausea, vomiting, abdominal bloating. PLAN: We will admit, give IV fluids. Treat nausea and vomiting. Get a CT of the abdomen and pelvis, consult general surgery. We will continue pramipexole for restless legs, Klonopin, monitor her blood pressure. Other tests or procedures as warranted. TRANSINT:[id number] Voice Confirmation ID: [id number] DOCUMENT ID: [id number] EDWARD CAMPBELL MD at 0819 CC: [id number] DICTATION DATE: 02/09/1830 SOFTWARE TEST ENGINEER: 02/09/18 0043 ADM IN [place] [id number] [place] [id number]
--- NOTE | ~2018-02-08 | MORECARE ---
CASE MANAGEMENT DISCHARGE SUMMARY PATIENT: LANNY JULIEN S UNIT: [id number] ADM DATE: 02/08/18 AGE: 77 : 38 SEX: F ROOM/BED: D.[facility]8 AUTHOR: GERARDO GALAN PHYSICIAN: REFERRING PHYSICIAN: EDWARD CAMPBELL MD DATE OF SERVICE: 02/09/18 Discharge Plan Patient Name: LANNY JULIEN [facility] : 1940 Planned Disposition: Home Anticipated Discharge Date: Discharge Date: Expected LOS: Initial Reviewer: [email or web address] Initial Review Date: 02/08/2018 Generated: 02/09/18 2:51 pm DCPIA - Discharge Planning Initial Assessment Updated by [email or web address]: Alethea Rodriguez on 02/09/18 1:45 pm * Is the patient Alert and Oriented? Yes * How many steps to enter\exit or inside your home? * PCP SHANNAN * Pharmacy [facility] * Preadmission Environment Home with Family * ADLs Independent * Equipment None * List name and contact numbers for known caregivers / representatives who currently or will assist patient after discharge: NICOL VENTURA (SON) [phone] * Verbal permission to speak to the caregivers and representatives has been obtained from the patient. N/A * Community resources currently utilized None * Additional services required to return to the preadmission environment? No * Can the patient safely return to the preadmission environment? Yes * Has this patient been hospitalized within the prior 30 days at any hospital? Yes Patient Name: LANNY JULIEN Page 10608 at 1351 All edits/amendments must be made on the electronic document DICTATION DATE: 02/09/18 1351 ELECTRICAL TECHNICIAN INSTRUCTOR: SELVIN 02/09/18 1351 RPT#: [id number] DC DATE: STATUS: ADM IN [facility] [address] [place] [address] END OF REPORT
--- NOTE | ~2018-02-08 | MORECARE ---
CASE MANAGEMENT DISCHARGE SUMMARY PATIENT: LANNY JULIEN UNIT: [id number] ADM DATE: 02/08/18 AGE: 77 : 38 SEX: F ROOM/BED: D.7930 AUTHOR: GERARDO GALAN PHYSICIAN: REFERRING PHYSICIAN: EDWARD CAMPBELL MD DATE OF SERVICE: 02/21/18 Discharge Plan Patient Name: LANNY JULIEN Facility: [facility]:[place] : 1940 Planned Disposition: Home Anticipated Discharge Date: 02/20/18 Discharge Date: 02/20/2018 Expected LOS: 12 Initial Reviewer: [email or web address] Initial Review Date: 02/08/2018 Generated: 02/21/18 10:42 am Comments DCP- Discharge Planning Updated by [email or web address]: Jessica Singh on 02/20/18 6:[address] LATE ENTRY 7081 DR CAMPBELL ADVISED CM OF HOSPICE CONSULT FOR [facility] AT [facility]. . HE HAS SPOKE WITH THE PATIENT. THERE HAD BEEN DISCUSSION REGARDING HOSPICE THE LAST 48 HRS. CM TELEPHONE [facility]. CM SPOKE WITH EV REGARDING REFERRAL. PACKET PREPARED. THE NATIONAL COVERAGE SPECIALIST CAME TO VISIT WITH THE SON, GRANDDAUGHTER AND THE PATIENT AT THE BEDSIDE APPROXIMATELY AN HOUR AFTER REFERRAL. CM RECEIVD NOTIFICATION FROM THE PRIMARY NURSE, RENITA, THAT THE PATIENT HAD BEEN ACCEPTED. ASSIGNED 555. E HAD CALLED REPORT TO W[facility] AT [phone]. PCS FOR FOR AMBULANCE TRANSPORT HAD BEEN COMPLETED. DCP- Discharge Planning Updated by [email or web address]: Alethea Rodriguez on 02/09/18 12:[address] Patient Name: LANNY JULIEN Admission Status: Urgent Accout number: [id number] Admission Date: 02-08-2018 : 1940 Admission Diagnosis: Attending: EDWARD CAMPBELL Current LOS: 1 Anticipated DC Date: Planned Disposition: Home Primary Insurance: MEDICARE A & B Discharge Planning Comments: CM met with patient to assess discharge planning needs. She stated that she is independent with her care and she helps care for her who has dementia. Her son and daughter in law live next door. She does not use any DME or Home health and does not think she will need any at discharge. CM will continue to follow and assist with DC planning Hearing And Speech Assistant: Alethea Rodriguez DCPIA - Discharge Planning Initial Assessment Updated by [email or web address]: Alethea Rodriguez on 02/09/18 1:45 pm * Is the patient Alert and Oriented? Yes * How many steps to enter\exit or inside your home? * PCP SHANNAN * Pharmacy [facility] * Preadmission Environment Home with Family * ADLs Independent * Equipment None * List name and contact numbers for known caregivers / representatives who currently or will assist patient after discharge: NICOL VENTURA (SON) [phone] * Verbal permission to speak to the caregivers and representatives has been obtained from the patient. N/A * Community resources currently utilized None * Additional services required to return to the preadmission environment? No * Can the patient safely return to the preadmission environment? Yes * Has this patient been hospitalized within the prior 30 days at any hospital? Yes Last DP export: 02/20/18 6:53 Patient Name: LANNY JULIEN Page 64631 at 0942 All edits/amendments must be made on the electronic document DICTATION DATE: 02/21/18941 LASTING MACHINE OPERATOR HAND METHOD: SELVIN 02/21/18941 RPT#: [id number] DC DATE:02/20/18 STATUS: DIS IN [facility] [address] [place] [address] END OF REPORT
--- NOTE | ~2018-02-08 | MORECARE ---
CASE MANAGEMENT DISCHARGE SUMMARY PATIENT: LANNY JULIEN UNIT: [id number] ADM DATE: 02/08/18 AGE: 77 : 38 SEX: F ROOM/BED: D.2218 AUTHOR: GERARDO GALAN PHYSICIAN: REFERRING PHYSICIAN: EDWARD CAMPBELL MD DATE OF SERVICE: 02/09/18 Discharge Plan Patient Name: LANNY JULIEN Facility: [facility]:[place] : 1940 Planned Disposition: Home Anticipated Discharge Date: Discharge Date: Expected LOS: Initial Reviewer: [email or web address] Initial Review Date: 02/08/2018 Generated: 02/09/18 2:59 pm Comments DCP- Discharge Planning Updated by [email or web address]: Alethea Rodriguez on 02/09/18 12:[address] Patient Name: LANNY JULIEN Admission Status: Urgent Accout number: [id number] Admission Date: 02-08-2018 : 1940 Admission Diagnosis: Attending: EDWARD CAMPBELL Current LOS: 1 Anticipated DC Date: Planned Disposition: Home Primary Insurance: MEDICARE A & B Discharge Planning Comments: CM met with patient to assess discharge planning needs. She stated that she is independent with her care and she helps care for her who has dementia. Her son and daughter in law live next door. She does not use any DME or Home health and does not think she will need any at discharge. CM will continue to follow and assist with DC planning Litigator: Alethea Rodriguez DCPIA - Discharge Planning Initial Assessment Updated by [email or web address]: Alethea Rodriguez on 02/09/18 1:45 pm * Is the patient Alert and Oriented? Yes * How many steps to enter\exit or inside your home? * PCP SHANNAN * Pharmacy [facility] * Preadmission Environment Home with Family * ADLs Independent * Equipment None * List name and contact numbers for known caregivers / representatives who currently or will assist patient after discharge: NICOL VENTURA (SON) [phone] * Verbal permission to speak to the caregivers and representatives has been obtained from the patient. N/A * Community resources currently utilized None * Additional services required to return to the preadmission environment? No * Can the patient safely return to the preadmission environment? Yes * Has this patient been hospitalized within the prior 30 days at any hospital? Yes Last DP export: 02/09/18 12:51 Patient Name: LANNY JULIEN Page 31041 at 1359 All edits/amendments must be made on the electronic document DICTATION DATE: 02/09/18 1355 RN HEMATOLOGY: SELVIN 02/09/18 1357 RPT#: [id number] DC DATE: STATUS: ADM IN [facility] [address] [place] [address] END OF REPORT
--- NOTE | ~2018-02-08 | EC ---
PATIENT:LANNY JULIEN DATE OF SERVICE: 02/08/18 SEX: F MEDICAL RECORD: [id number] DATE OF : [birth year] LOCATION:D. D.212 AGE OF PATIENT: 77 ADMISSION DATE: 02/08/18 REFERRING PHYSICIAN: INTERPRETING PHYSICIAN: CLAUDETTE GÓMEZ MD ECHOCARDIOGRAM REPORT ECHO CHARGES 4 ECHO COMPLETE Date: 02/20/18 CLINICAL DIAGNOSIS: NEW ONSET OF AFIB ECHOCARDIOGRAPHIC MEASUREMENTS (adult normal given) AC root (d.<3.7cm) 3.1 cm LV Septum d (<1.2 cm> 1.4 cm Valve Excursion 1.5 cm LV Septum (systole) 1.5 cm Left Atria (s.<4.0cm> 3.8 cm LVPW d(<1.2cm) 1.4 cm RV (d.<2.3cm) 2.3 cm LVPW (sytole) 1.7 cm LV diastole(<5.6CM) 5.1 cm MV E-F(>70mm/sec) cm LV systole 3.6 cm LVOT Diameter 1.7 cm MV exc.(>10mm) 1.6 cm Est.ejection fraction (50-75%) % DOPPLER: LVIT cm/sec A 59.0 cm/sec E 64.0 cm/sec LA cm/sec RVSP 40 mmHg LVOT 107 cm/sec AOP1/2T m/s Asc. Ao 151 cm/sec RVOT cm/sec RA cm/sec PA cm/sec AV Gradient Peak 9.10 mmHg AV Mean 4.83 mmHg AV Area 1.6 cm MV Gradient Peak 2.87 mmHg MV Mean 0.96 mmHg MV Area cm COMMENTS: Waxed Bag Machine Operator: 2 DENNY DE LA TORRE Padded Products Finisher: 4 Dr. Gómez TAPE# PACS Pericardial Effusion N DATE OF SERVICE: PROCEDURE: Transthoracic echocardiogram. FINDINGS: 1. The ejection fraction is actually hyperdynamic, EF in the 70% to 75% range. There is mild left ventricular hypertrophy, concentric in nature. There are no obvious regional wall motion abnormalities. Inflow characteristics appear to be normal. 2. The right ventricle is mildly dilated. ECHOCARDIOGRAM REPORT [id number] LANNY JULIEN 3. The left atrium is normal. 4. The aortic valve is grossly normal. 5. The mitral valve has trace mitral regurgitation. 6. The tricuspid valve has mild tricuspid regurgitation. RVSP of 40 mmHg. CONCLUSIONS: The patient has evidence of mild left ventricular hypertrophy and hyperdynamic LV systolic function, but otherwise normal echo for the patient's stated age. TRANSINT:[id number] Voice Confirmation ID: [id number] DOCUMENT ID: [id number] CLAUDETTE GÓMEZ MD CC: [id number] DICTATION DATE: 02/21/18 1046 BOILERMAKER PIPE FITTER: 02/21/18 1106 DIS IN 02/20/18 [facility] [address] [place] [id number]
--- NOTE | ~2018-02-08 | MORECARE ---
CASE MANAGEMENT DISCHARGE SUMMARY PATIENT: LANNY JULIEN UNIT: [id number] ADM DATE: 02/08/18 AGE: 77 : 38 SEX: F ROOM/BED: D.7922 AUTHOR: GERARDO GALAN PHYSICIAN: REFERRING PHYSICIAN: EDWARD CAMPBELL MD DATE OF SERVICE: 02/21/18 Discharge Plan Patient Name: LANNY JULIEN Facility: [facility]:[place] : 1940 Planned Disposition: Home Anticipated Discharge Date: 02/20/18 Discharge Date: 02/20/2018 Expected LOS: 12 Initial Reviewer: [id number] Initial Review Date: 02/08/2018 Generated: 02/21/18 10:54 am Comments DCP- Discharge Planning Updated by [email or web address]: Jessica Singh on 02/20/18 6:[address] LATE ENTRY 0713 DR CAMPBELL ADVISED CM OF HOSPICE CONSULT FOR [facility]. . HE HAS SPOKE WITH THE PATIENT. THERE HAD BEEN DISCUSSION REGARDING HOSPICE THE LAST 48 HRS. CM TELEPHONE [facility]. CM SPOKE WITH EV REGARDING REFERRAL. PACKET PREPARED. THE CORPORATE SAFETY DIRECTOR CAME TO VISIT WITH THE SON, GRANDDAUGHTER AND THE PATIENT AT THE BEDSIDE APPROXIMATELY AN HOUR AFTER REFERRAL. CM RECEIVD NOTIFICATION FROM THE PRIMARY NURSE, RENITA, THAT THE PATIENT HAD BEEN ACCEPTED. ASSIGNED 555. E HAD CALLED REPORT TO [facility] AT [phone]. PCS FOR FOR AMBULANCE TRANSPORT HAD BEEN COMPLETED. DCP- Discharge Planning Updated by [email or web address]: Alethea Rodriguez on 02/09/18 12:[address] Patient Name: LANNY JULIEN Admission Status: Urgent Accout number: [id number] Admission Date: 02-08-2018 : 1940 Admission Diagnosis: Attending: EDWARD CAMPBELL Current LOS: 1 Anticipated DC Date: Planned Disposition: Home Primary Insurance: MEDICARE A & B Discharge Planning Comments: CM met with patient to assess discharge planning needs. She stated that she is independent with her care and she helps care for her who has dementia. Her son and daughter in law live next door. She does not use any DME or Home health and does not think she will need any at discharge. CM will continue to follow and assist with DC planning Speed Operator: Alethea Rodriguez DCPIA - Discharge Planning Initial Assessment Updated by [email or web address]: Alethea Rodriguez on 02/09/18 1:45 pm * Is the patient Alert and Oriented? Yes * How many steps to enter\exit or inside your home? * PCP SHANNAN * Pharmacy [facility] * Preadmission Environment Home with Family * ADLs Independent * Equipment None * List name and contact numbers for known caregivers / representatives who currently or will assist patient after discharge: NICOL VENTURA (SON) [phone] * Verbal permission to speak to the caregivers and representatives has been obtained from the patient. N/A * Community resources currently utilized None * Additional services required to return to the preadmission environment? No * Can the patient safely return to the preadmission environment? Yes * Has this patient been hospitalized within the prior 30 days at any hospital? Yes Last DP export: 02/20/18 6:53 Patient Name: LANNY JULIEN Page 11945 at 0954 All edits/amendments must be made on the electronic document DICTATION DATE: 02/21/18952 VAT HOUSE LABORER: SELVIN 02/21/18952 RPT#: [id number] DC DATE:02/20/18 STATUS: DIS IN [facility] [address] [place] [address] END OF REPORT
--- NOTE | ~2018-02-08 | MORECARE ---
CASE MANAGEMENT DISCHARGE SUMMARY PATIENT: LANNY JULIEN UNIT: [id number] ADM DATE: 02/08/18 AGE: 77 : 38 SEX: F ROOM/BED: D.8061 AUTHOR: GERARDO GALAN PHYSICIAN: REFERRING PHYSICIAN: EDWARD CAMPBELL MD DATE OF SERVICE: 02/20/18 Discharge Plan Patient Name: LANNY JULIEN Facility: [facility]:[place] : 1940 Planned Disposition: Home Anticipated Discharge Date: 02/20/18 Discharge Date: 02/20/2018 Expected LOS: 12 Initial Reviewer: [email or web address] Initial Review Date: 02/08/2018 Generated: 02/20/18 8:53 pm Comments DCP- Discharge Planning Updated by [email or web address]: Jessicakrishan Singh on 02/20/18 6:[address] LATE ENTRY 3213 DR CAMPBELL ADVISED CM OF HOSPICE CONSULT FOR [facility] AT [facility]. . HE HAS SPOKE WITH THE PATIENT. THERE HAD BEEN DISCUSSION REGARDING HOSPICE THE LAST 48 HRS. CM TELEPHONE [facility]. CM SPOKE WITH EV REGARDING REFERRAL. PACKET PREPARED. THE HUMAN RESOURCES HR GENERALIST CAME TO VISIT WITH THE SON, GRANDDAUGHTER AND THE PATIENT AT THE BEDSIDE APPROXIMATELY AN HOUR AFTER REFERRAL. CM RECEIVD NOTIFICATION FROM THE PRIMARY NURSE, RENITA, THAT THE PATIENT HAD BEEN ACCEPTED. ASSIGNED 555. E HAD CALLED REPORT TO [facility] AT [phone]. PCS FOR FOR AMBULANCE TRANSPORT HAD BEEN COMPLETED. DCP- Discharge Planning Updated by [email or web address]: Alethea Rodriguez on 02/09/18 12:[address] Patient Name: LANNY JULIEN Admission Status: Urgent Accout number: [id number] Admission Date: 02-08-2018 : 1940 Admission Diagnosis: Attending: EDWARD CAMPBELL Current LOS: 1 Anticipated DC Date: Planned Disposition: Home Primary Insurance: MEDICARE A & B Discharge Planning Comments: CM met with patient to assess discharge planning needs. She stated that she is independent with her care and she helps care for her who has dementia. Her son and daughter in law live next door. She does not use any DME or Home health and does not think she will need any at discharge. CM will continue to follow and assist with DC planning [place] Printer: Alethea Rodriguez DCPIA - Discharge Planning Initial Assessment Updated by [email or web address]: Alethea Rodriguez on 02/09/18 1:45 pm * Is the patient Alert and Oriented? Yes * How many steps to enter\exit or inside your home? * PCP SHANNAN * Pharmacy [facility] * Preadmission Environment Home with Family * ADLs Independent * Equipment None * List name and contact numbers for known caregivers / representatives who currently or will assist patient after discharge: NICOL VENTURA (SON) [phone] * Verbal permission to speak to the caregivers and representatives has been obtained from the patient. N/A * Community resources currently utilized None * Additional services required to return to the preadmission environment? No * Can the patient safely return to the preadmission environment? Yes * Has this patient been hospitalized within the prior 30 days at any hospital? Yes Last DP export: 02/20/18 6:41 Patient Name: LANNY JULIEN Page 49768 at 1953 All edits/amendments must be made on the electronic document DICTATION DATE: 02/20/181952 INCINERATOR PLANT SUPERVISOR: SELVIN 02/20/181952 RPT#: [id number] UZAIR DATE:02/20/18 STATUS: DIS IN [facility] [address] [place] [address] END OF REPORT
--- NOTE | ~2018-02-08 | OP ---
PATIENT NAME: LANNY JULIEN MEDICAL RECORD: [id number] :36 LOCATION:[id number] ADMISSION DATE:02/08/18 SURGEON: ABDULKADIR PALMA MD DATE OF OPERATION: 02/13/2018 PREOPERATIVE DIAGNOSIS: Recurrent partial small-bowel obstruction. POSTOPERATIVE DIAGNOSES: 1. Recurrent partial small-bowel obstruction. 2. Peritoneal implant. 3. Carcinomatosis. 4. Malignant ascites. 5. Intraabdominal adhesions. 6. 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 PROCEDURES: 1. Diagnostic laparoscopy with conversion to exploratory laparotomy. 2. Excisional biopsy of peritoneal implant. 3. Small bowel resection with anastomosis. 4. Greater omentectomy. SURGEON: Abdulkadir Palma MD FINISHER CARD TENDER: None. BLOOD LOSS: Minimal. ANESTHESIA: General. COMPLICATIONS: None. The risks, possible complications, and alternatives to the procedure were explained to the patient. She elects to proceed. OPERATIVE COURSE: The patient was conveyed the operating room electively on 02/13/2018. General anesthesia was induced by the anesthesia staff. The abdomen was sterilely prepped and draped. A small skin kyung was accomplished in the left upper quadrant. A Veress needle was inserted through the skin kyung into the peritoneal cavity. CO2 insufflation was begun. Once a sufficient pneumoperitoneum had been achieved, a 5-mm trocar was inserted in the left upper quadrant. Under direct internal vision utilizing a television camera, 2 more 5-mm trocars were inserted in the left side of the abdomen. An abdominal survey was undertaken. There was some brown ascites present and this was aspirated and sent for culture as well as cytology. There were some adhesions in the right lower quadrant. These adhesions were taken down with the Harmonic scalpel. There were some other adhesions that I began to take down with the Harmonic scalpel. I noted carcinomatosis. I then converted to exploratory laparotomy. I ran the small bowel. Carcinomatosis was present. There were some more adhesions, which I lysed. The indication for the omentectomy was to prevent omental caking in the future. The omentum was grasped and retracted. I took down the greater omentum with the Super Jaw EnSeal device. I ran the small bowel. There were 2 areas of near obstruction due to invasion by the malignancy. These were fairly close to one another and I excised both of these as single specimen. Windows were created in the mesentery OPERATIVE REPORT [id number] LANNY JULIEN S of the small bowel proximal to the most proximal of these lesions and distal to the distal most lesions. I then divided the bowel at these 2 sites with a INES-75 stapler. The interposed mesentery was sealed and divided with the Super Jaw EnSeal device. Small bowel was then placed in apposition side by side for a bqkg-na-duiw anastomosis. Two small enterotomies were accomplished. Anvils of the INES-75 stapler were advanced and then fired. The resulting enteric defect was closed with single firing of a TA 60 stapler. I ran the small bowel twice. No other evidence of obstruction. I aspirated the remaining ascites. There was a peritoneal implant on the right side of the abdomen and this was excised with the Harmonic scalpel. The midline fascia was approximated with a running looped #1 PDS. I then overran the fascial closure with a running #1 Vicryl. Deanna were used for the cutaneous closure at all the operative sites. The patient was then extubated and conveyed to the post-anesthesia care unit where she was in stable condition. TRANSINT:[id number] Voice Confirmation ID: [id number] DOCUMENT ID: [id number] ABDULKADIR PALMA MD at 1656 CC: EDWARD CAMPBELL MD [id number] DICTATION DATE: 02/13/18 1004 AIRCRAFT CLEANING SUPERVISOR: 02/13/18 1028 ADM IN [facility] [address] [id number]
--- NOTE | ~2018-02-08 | MORECARE ---
CASE MANAGEMENT DISCHARGE SUMMARY PATIENT: LANNY JULIEN UNIT: [id number] ADM DATE: 02/08/18 AGE: 77 : 38 SEX: F ROOM/BED: D.3944 AUTHOR: GERARDO GALAN PHYSICIAN: REFERRING PHYSICIAN: EDWARD CAMPBELL MD DATE OF SERVICE: 02/20/18 Discharge Plan Patient Name: LANNY JULIEN Facility: [facility]:[place] : 1940 Planned Disposition: Home Anticipated Discharge Date: 02/20/18 Discharge Date: 02/20/2018 Expected LOS: 12 Initial Reviewer: [email or web address] Initial Review Date: 02/08/2018 Generated: 02/20/18 8:41 pm Comments DCP- Discharge Planning Updated by [email or web address]: Alethea Rodriguez on 02/09/18 12:[address] Patient Name: LANNY JULIEN Admission Status: Urgent Accout number: [id number] Admission Date: 02-08-2018 : 1940 Admission Diagnosis: Attending: EDWARD CAMPBELL Current LOS: 1 Anticipated DC Date: Planned Disposition: Home Primary Insurance: MEDICARE A & B Discharge Planning Comments: CM met with patient to assess discharge planning needs. She stated that she is independent with her care and she helps care for her who has dementia. Her son and daughter in law live next door. She does not use any DME or Home health and does not think she will need any at discharge. CM will continue to follow and assist with DC planning Arc Welding Machine Operator: Alethea Rodriguez DCPIA - Discharge Planning Initial Assessment Updated by [email or web address]: Alethea Rodrgiuez on 02/09/18 1:45 pm * Is the patient Alert and Oriented? Yes * How many steps to enter\exit or inside your home? * PCP [facility] * Pharmacy [facility] [address] * Preadmission Environment Home with Family * ADLs Independent * Equipment None * List name and contact numbers for known caregivers / representatives who currently or will assist patient after discharge: NICOL VENTURA (SON) [phone] * Verbal permission to speak to the caregivers and representatives has been obtained from the patient. N/A * Community resources currently utilized None * Additional services required to return to the preadmission environment? No * Can the patient safely return to the preadmission environment? Yes * Has this patient been hospitalized within the prior 30 days at any hospital? Yes Last DP export: 02/09/18 12:59 Patient Name: LANNY JULIEN Page [id number] at 1943 All edits/amendments must be made on the electronic document DICTATION DATE: 02/20/181939 JIG GRINDER SET UP OPERATOR: SELVIN 02/20/181939 RPT#: [id number] DC DATE:02/20/18 STATUS: DIS IN [facility] [address] [place] [address] END OF REPORT
[~2018-02-08 16:37] MED LIST changes: +FLAGYL500 MG PO; +LEVAQUIN250 MG PO
[2018-02-08 17:47] LABS: BASOPHILS 0.4 % (0-2); EOSINOPHILS 0.4 % (0-7); HEMATOCRIT 39.2 % (36.0-48.0); HEMOGLOBIN 12.9 g/dL (12-16); IMMATURE GRANULOCYTES 0.3 % (0-5); LYMPHOCYTES 10.5 % (15-50); MCH 29.7 pg (26.0-34.0); MCHC 32.9 g/dL (31.0-37.0); MCV 90.1 fL (80.0-100.0); MEAN PLATELET VOLUME 9.7 fL (7.4-10.4); MONOCYTES 7.7 % (2-11); NEUTROPHILS 80.7 % (40-80); RBC 4.35 10x6/uL (4.00-5.40); RDW 13.3 % (11.5-14.5); WBC 7.2 10x3/uL (4.8-10.8)
[2018-02-08 17:54] LABS: PLATELET COUNT 249 10x3/uL (130-400)
[2018-02-08 18:30] LABS: ALBUMIN 3.3 g/dL (3.4-5.0); ANION GAP 18.8 mmol/L (8-16); BILIRUBIN - TOTAL 0.61 mg/dL (0.2-1.3); CALCIUM 9.2 mg/dL (8.5-10.1); CARBON DIOXIDE 24.3 mmol/L (21.0-32.0); POTASSIUM - SERUM 4.1 mmol/L (3.5-5.1)
[2018-02-08 21:11] VITALS: BP 121/72
[2018-02-09 03:39] VITALS: BP 129/77
[2018-02-09 08:51] VITALS: BP 130/70
[2018-02-09 12:36] VITALS: BP 139/70
[2018-02-09 16:52] VITALS: BP 167/83
[2018-02-09 20:00] VITALS: BP 149/74
[2018-02-10 00:58] VITALS: BP 130/70; BMI 22.3
[2018-02-10 04:00] VITALS: BP 121/78
[2018-02-10 08:58] VITALS: BP 153/78
[2018-02-10 12:55] VITALS: BP 164/82
[2018-02-10 17:37] VITALS: BP 103/67
[2018-02-10 21:55] VITALS: BP 167/78
[2018-02-11 06:37] VITALS: BP 148/76
[2018-02-11 07:56] VITALS: BP 174/84
[2018-02-11 11:56] VITALS: BP 162/83
[2018-02-11 17:17] VITALS: BP 164/80
[2018-02-11 22:08] VITALS: BP 148/70
[2018-02-12 06:11] VITALS: BP 146/74
[2018-02-12 10:04] VITALS: BP 139/71
[2018-02-12 16:22] VITALS: BP 168/89
[2018-02-12 20:30] VITALS: BP 129/59
[2018-02-13] VITALS (12 sets, daily range): BP systolic 130–173; BP diastolic 76–95
[2018-02-14] VITALS: BP 165/91
[2018-02-14 05:00] VITALS: BP 163/84
[2018-02-14 05:10] LABS: BASOPHILS 0.1 % (0-2); EOSINOPHILS 0 % (0-7); HEMATOCRIT 37.7 % (36.0-48.0); HEMOGLOBIN 12.3 g/dL (12-16); IMMATURE GRANULOCYTES 0.4 % (0-5); LYMPHOCYTES 4.9 % (15-50); MCH 29.2 pg (26.0-34.0); MCHC 32.6 g/dL (31.0-37.0); MCV 89.5 fL (80.0-100.0); MEAN PLATELET VOLUME 10.3 fL (7.4-10.4); MONOCYTES 7.4 % (2-11); NEUTROPHILS 87.2 % (40-80); PLATELET COUNT 230 10x3/uL (130-400); RBC 4.21 10x6/uL (4.00-5.40); RDW 13.8 % (11.5-14.5); WBC 11.4 10x3/uL (4.8-10.8)
[2018-02-14 05:27] LABS: ALBUMIN 2.8 g/dL (3.4-5.0); ALKALINE PHOSPHATASE 36 U/L (46-116); ALT (SGPT) 7 U/L (10-68); BILIRUBIN - TOTAL 0.53 mg/dL (0.2-1.3); CALC OSMOLALITY 275 mosm/kg (275-300); CALCIUM 8.1 mg/dL (8.5-10.1); CARBON DIOXIDE 27.4 mmol/L (21.0-32.0); CHLORIDE - SERUM 105 mmol/L (98-107); CREATININE - SERUM 0.9 mg/dL (0.6-1.3); GLUCOSE 104 mg/dL (74-106); MAGNESIUM - SERUM 1.5 mg/dL (1.8-2.4); PHOSPHOROUS 3.7 mg/dL (2.5-4.9); POTASSIUM - SERUM 3.7 mmol/L (3.5-5.1); PROTEIN - SERUM 6.7 g/dL (6.4-8.2); SODIUM 140 mmol/L (136-145); TROPONIN-I < 0.017 ng/mL (0.000-0.060); UREA NITROGEN 5 mg/dL (7-18); eGFR NON AFRICAN AMERICAN 64 mL/min (90-120)
[2018-02-14 07:45] VITALS: BP 165/93
[2018-02-14 15:03] VITALS: Ht 154.9 cm; Wt 53.6 kg
[2018-02-14 17:05] VITALS: BP 101/115
[2018-02-14 18:41] VITALS: BP 159/97
[2018-02-14 20:33] VITALS: BP 151/96
[2018-02-15 02:35] VITALS: BP 166/96
[2018-02-15 05:01] VITALS: BP 174/74
[2018-02-15 08:43] VITALS: BP 175/96
[2018-02-15 10:20] LABS: CEA 126.6 ng/mL (0.0-4.7)
[2018-02-15 17:16] VITALS: BP 181/96
[2018-02-15 21:33] VITALS: BP 180/98
[2018-02-16 01:38] VITALS: BP 177/97
[2018-02-16 04:45] VITALS: BP 180/84
[2018-02-16 08:27] VITALS: BP 163/78
[2018-02-16 12:20] VITALS: BP 142/74
[2018-02-16 20:12] VITALS: BP 180/84
[2018-02-17] VITALS (7 sets, daily range): BP systolic 110–164; BP diastolic 74–83
[2018-02-18 04:00] VITALS: BP 142/83
[2018-02-18 09:00] VITALS: BP 137/80
[2018-02-18 12:30] VITALS: BP 86/57
[2018-02-18 16:27] VITALS: BP 126/75
[2018-02-18 19:55] VITALS: BP 116/66
[2018-02-19] VITALS (7 sets, daily range): BP systolic 81–110; BP diastolic 50–59
[2018-02-19 16:15] LABS: HEMATOCRIT 36.8 % (36.0-48.0); HEMOGLOBIN 12.4 g/dL (12-16); MCH 29.1 pg (26.0-34.0); MCHC 33.7 g/dL (31.0-37.0); MCV 86.4 fL (80.0-100.0); MEAN PLATELET VOLUME 10.4 fL (7.4-10.4); PLATELET COUNT 175 10x3/uL (130-400); RBC 4.26 10x6/uL (4.00-5.40); RDW 14.4 % (11.5-14.5)
[2018-02-19 16:27] LABS: ALBUMIN 1.5 g/dL (3.4-5.0); ANION GAP 14.6 mmol/L (8-16); BILIRUBIN - TOTAL 0.81 mg/dL (0.2-1.3); CALCIUM 7.7 mg/dL (8.5-10.1); CARBON DIOXIDE 21.3 mmol/L (21.0-32.0); CREATININE - SERUM 1.7 mg/dL (0.6-1.3); PROTEIN - SERUM 4.3 g/dL (6.4-8.2)
[2018-02-19 16:37] LABS: LYMPHOCYTES 1 % (15-50); MONOCYTES 2 % (2-11); NEUTROPHILS 72 % (40-80)
[2018-02-19 16:38] LABS: CRENATED CELLS 2+; PLATELET ESTIMATE NORMAL; PLATELET MORPHOLOGY NORMAL PLT MORPH
[2018-02-19 16:39] LABS: POTASSIUM - SERUM 2.9 mmol/L (3.5-5.1)
[2018-02-20 03:45] VITALS: BP 93/46
[2018-02-20 08:13] VITALS: BP 92/62
[2018-02-20 11:34] VITALS: BP 109/65
[2018-02-20 16:35] VITALS: BP 103/63
== END 2018-02-20 19:03 | disposition home health service (06) | DRG 330 ==
LOC: D.MS 16:37 → D.M2 02-19 18:10
PROVIDERS: Family Medicine; Surgery
PROC: 0DT80ZZ Resection of Small Intestine, Open Approach (ICD-10-PCS; principal; 2018-02-13 08:00)
PROC: 0DTU0ZZ Resection of Omentum, Open Approach (ICD-10-PCS; 2018-02-13 08:00)
DX: C17.8 Malignant neoplasm of overlapping sites of small intestine (principal); K56.609 Unspecified intestinal obstruction, unspecified as to partial versus complete obstruction; C78.6 Secondary malignant neoplasm of retroperitoneum and peritoneum; R18.0 Malignant ascites; F33.0 Major depressive disorder, recurrent, mild; I10 Essential (primary) hypertension; I25.10 Atherosclerotic heart disease of native coronary artery without angina pectoris